=== PATIENT | female | born 1980 ===

== ENCOUNTER → 2020-05-27 | Outpatient (CLI) | payer OTHER ==
[~2020-05-27] MED LIST: CLEOCIN HC150 MG/CAP PO; NO MEDICATIONS; NORCO 325 MG-51 TAB PO; SPRINTEC 35 MCG1 TAB PO
== END ==
LOC: COL.RAD 10:30
DX: Q51.818 Other congenital malformations of uterus (principal)
CPT/HCPCS: A9585

== ENCOUNTER → 2023-09-22 | Outpatient (CLI) | payer BC | LOC: DIA.ED 10:26 | DX: E11.9 Type 2 diabetes mellitus without complications (principal); Z79.84 Long term (current) use of oral hypoglycemic drugs | CPT/HCPCS: G0108 ==

== ENCOUNTER → 2023-10-27 | Outpatient (CLI) | payer BC | LOC: DIA.ED 09-27 16:21 | DX: E11.9 Type 2 diabetes mellitus without complications (principal); Z79.84 Long term (current) use of oral hypoglycemic drugs ==

== ENCOUNTER → 2023-11-24 | Outpatient (CLI) | payer BC | LOC: MC.RAD 14:00 | DX: Z12.31 Encounter for screening mammogram for malignant neoplasm of breast (principal) ==